=== PATIENT | male | born 1970 | race Caucasian/White ===

== ENCOUNTER → 2018-04-20 | Outpatient (CLI) | payer OTHER ==
[2018-04-20 15:37] LABS: Basophils # (auto) 0.1 uL; Basophils % (auto) 0.7 % (0.0-2.0); Eosinophils # (auto) 0.3 uL; Eosinophils % (auto) 2.4 % (0.0-7.0); Lymphocytes # (auto) 2.7 uL; Lymphocytes % (auto) 20.9 % (10.0-50.0); Mean Corpuscular Hemoglobin 30.2 pg (28.0-32.0); Mean Corpuscular Hgb Conc. 33.9 g/dL (32.0-36.0); Monocytes # (auto) 1.1 uL; Monocytes % (auto) 8.5 % (0.0-12.0); Neutrophils # (auto) 8.8 uL; Neutrophils % (auto) 67.5 % (37.0-80.0); Nucleated Red Blood Cells % 0.1 %; Platelet Count (auto) 274 10^3/uL (140-450); Red Blood Cells 5.29 10^6/uL (4.5-5.90); Red Cell Distribution Width 14.4 % (11.8-14.3)
[2018-04-20 15:58] LABS: Albumin 4.2 g/dL (3.4-5.0); BUN/Creatinine Ratio 13.8; Calcium 9.7 mg/dL (8.5-10.1); Potassium 4.4 mmol/L (3.5-5.1)
[2018-04-20 16:01] LABS: Bilirubin, Total 0.8 mg/dL (0.2-1.0); Total Protein 8.2 g/dL (6.4-8.2)
== END | disposition home or self-care (01) ==
LOC: LAB 15:16
PROVIDERS: ATTEND Internal Medicine
DX: E11.9 Type 2 diabetes mellitus without complications (principal); E78.5 Hyperlipidemia, unspecified; N52.9 Male erectile dysfunction, unspecified
CPT/HCPCS: 36415; 80053; 80061; 82043; 82306; 83036; 84403; 84443; 85025

== ENCOUNTER → 2018-06-25 | Outpatient (CLI) | payer OTHER ==
[2018-06-25 16:27] LABS: Calcium 9.1 mg/dL (8.5-10.1); Potassium 4.1 mmol/L (3.5-5.1)
== END | disposition home or self-care (01) ==
LOC: LAB 15:41
PROVIDERS: ATTEND Urology
DX: R97.20 Elevated prostate specific antigen [PSA] (principal)
CPT/HCPCS: 36415; 80048; 84154

== ENCOUNTER → 2020-06-07 | Outpatient (CLI) | payer OTHER ==
[2020-06-07 11:51] LABS: Basophils # (auto) 0.1 10 ^3/uL (0-0.2); Basophils % (auto) 0.7 % (0.0-2.0); Eosinophils # (auto) 0.3 10 ^3/uL (0-0.8); Eosinophils % (auto) 2.1 % (0.0-7.0); Hematocrit 45.5 % (41.0-53.0); Hemoglobin 15.6 g/dL (13.5-17.5); Lymphocytes # (auto) 2.6 10 ^3/uL (0.4-5.4); Mean Corpuscular Hemoglobin 30.3 pg (28.0-32.0); Mean Corpuscular Hgb Conc. 34.3 g/dL (32.0-36.0); Mean Corpuscular Volume 88.2 fL (80.0-100.0); Monocytes # (auto) 1.2 10 ^3/uL (0-1.3); Monocytes % (auto) 9.4 % (0.0-12.0); Neutrophils # (auto) 8.3 10 ^3/uL (1.6-8.6); Neutrophils % (auto) 66.8 % (37.0-80.0); Nucleated Red Blood Cells % 0.1 %; Platelet Count (auto) 282 10^3/uL (140-450); Red Blood Cells 5.16 10^6/uL (4.5-5.90); White Blood Cell 12.4 10^3/uL (4.4-10.8)
[2020-06-07 12:07] LABS: Calcium 9.3 mg/dL (8.5-10.1); Potassium 4.3 mmol/L (3.5-5.1)
[2020-06-07 12:12] LABS: BUN/Creatinine Ratio 11.5; Bilirubin, Total 0.6 mg/dL (0.2-1.0); Total Protein 8.1 g/dL (6.4-8.2)
== END | disposition home or self-care (01) ==
LOC: LAB 11:16
PROVIDERS: ATTEND Internal Medicine
DX: Z12.5 Encounter for screening for malignant neoplasm of prostate (principal); Z00.00 Encounter for general adult medical examination without abnormal findings; Z12.11 Encounter for screening for malignant neoplasm of colon; N45.1 Epididymitis; R73.9 Hyperglycemia, unspecified; E55.9 Vitamin D deficiency, unspecified; R73.09 Other abnormal glucose; Z85.51 Personal history of malignant neoplasm of bladder
CPT/HCPCS: 36415; 80053; 80061; 82306; 83036; 84153; 84403; 84443; 85025; 85652; 87086